=== PATIENT | male | born 1980 ===

== ENCOUNTER → 2017-12-27 | Outpatient (CLI) | payer OTHER ==
[~2017-12-27] MED LIST: LEV125 PO; LEVO-3 PO; LEVO75TA73 PO
[2017-12-27 17:04] LABS: PLATELET COUNT, AUTOMATED 245 K/uL (150-450)
== END ==
LOC: LAB 13:38
PROVIDERS: ATTEND Internal Medicine
DX: E03.9 Hypothyroidism, unspecified (principal); R10.9 Unspecified abdominal pain
CPT/HCPCS: 36415; 82040; 82150; 82247; 82310; 82374; 82435; 82565; 82947; 83690; 84075; 84132; 84155; 84295; 84439; 84443; 84450; 84460; 84520; 85025

== ENCOUNTER → 2018-01-03 | Outpatient (CLI) | payer OTHER ==
--- NOTE | 2018-01-03 14:41 | RADIOLOGY IMAGING REPORT ---
FACILITY: [facility] [place] PATIENT NAME: Duke House : 1980 MR: [id number] V: [id number] EXAM DATE: ORDERING PHYSICIAN: SIMONA YOUSIF TECHNOLOGIST: Location: [facility] [place] Patient: Duke House : 1980 Visit/Account:[id number] Date of Sevice: 01/03/2018 Exam type: KUB SINGLE VIEW ABDOMEN History: Peribuccal pain with workouts Comparison: None. Findings: There is a nonspecific bowel gas pattern. There is no evidence of organomegaly or pathologic intra-a bdominal calcifications. A small round sclerotic density projects just above the right acetabulum li carey a small bone island. Similar finding is seen medial aspect left iliac bone IMPRESSION: 1. Nonspecific bowel gas pattern Report Dictated By: Kathrine Gonzalez MD at 01/03/2018 2:33 PM Report E-Signed By: Kathrine Gnozalez MD at 01/03/2018 2:36 PM WSN:[email or web address]
== END ==
LOC: RAD 10:55
PROVIDERS: ATTEND Internal Medicine
DX: E03.9 Hypothyroidism, unspecified (principal); R10.9 Unspecified abdominal pain; S76.219A Strain of adductor muscle, fascia and tendon of unspecified thigh, initial encounter
CPT/HCPCS: 74018; 81001

== ENCOUNTER → 2018-05-09 | Outpatient (CLI) | payer OTHER | LOC: LAB 10:29 | PROVIDERS: ATTEND Internal Medicine | DX: E03.9 Hypothyroidism, unspecified (principal) | CPT/HCPCS: 36415; 84439; 84443 ==